=== PATIENT | female | born 1995 | race Caucasian/White ===

== ENCOUNTER 2019-02-07 15:54 | Emergency (ER) | payer OTHER ==
[2019-02-07] MEDS ORDERED: LIDOCAINE 1% INJ-PF (10 MG/ML) 30 ML SDV INJ ONE (16:53)
[2019-02-07] MEDS ORDERED: AZITHROMYCIN 250 MG TABLET PO ONE (16:53)
[2019-02-07] MEDS ORDERED: CEFTRIAXONE INJ 250 MG VIAL IM ONE (16:53)
--- NOTE | 2019-02-07 16:57 | ER Document Report ---
HPI - HPI Time Seen by Provider: 02/07/19 16:48 Notes: Patient is a 23-year-old female no significant past medical history who was diagnosed with chlamydia couple weeks ago and had a couple treatments for it. Patient states that she did have intercourse with her around that time as well and presents with him for both of them to get treated. Patient states that she is just here to make sure that it is not in her system anymore and would like another treatment. She is otherwise able to eat and drink without difficulty. She is urinating normally. No other vaginal discharge, odor, or bleeding. She has no concerns or complaints otherwise. Denies any headache, fever, URI, sore throat, chest pain, palpitations, syncope, cough, shortness of breath, wheeze, dyspnea, abdominal pain, nausea/vomiting/diarrhea, urinary retention, dysuria, hematuria, loss of control of bowel or bladder, numbness/tingling, saddle anesthesia, muscle paralysis/weakness, or rash. - ROS Systems Reviewed and Negative: Yes All other systems reviewed and negative Past Medical History - Social History Smoking Status: Unknown if Ever Smoked Family History: Reviewed & Not Pertinent Vertical Provider Document - CONSTITUTIONAL Agree With Documented VS: Yes Notes: PHYSICAL EXAMINATION: GENERAL: Well-appearing, well-nourished and in no acute distress. NECK: Normal range of motion, supple without lymphadenopathy LUNGS: Breath sounds clear to auscultation bilaterally and equal. No wheezes rales or rhonchi. HEART: Regular rate and rhythm without murmurs, rubs, gallops. ABDOMEN: Soft, nontender, nondistended abdomen. No guarding, no rebound. Normal bowel sounds present. No CVA tenderness bilaterally. Musculoskeletal: FROM to passive/active. Strength 5+/5. Extremities: No cyanosis, clubbing, or edema b/l. Peripheral pulses 2+. Capillary refill less than 3 seconds. NEUROLOGICAL: Normal speech, normal gait. PSYCH: Normal mood, normal affect. SKIN: Warm, Dry, normal turgor, no rashes or lesions noted. Course - Re-evaluation Re-evalutation: 02/07/19 16:55 Patient is an afebrile, well-hydrated, 21-year-old female who presents for STD testing. Vitals are acceptable. PE is otherwise unremarkable. Patient is otherwise asymptomatic. Zithromax and Rocephin given. Chlamydia/gonorrhea tests are pending. No further work-up warranted. Abdomen is otherwise soft nontender. Patient to recheck with your PCM next week. Consider consult with our department. Return to the ED with any other worsening/concerning symptoms. Patient is in today. Low suspicion for any other systemic or emergent condition at this time. Discharge - Discharge Clinical Impression: STD exposure Condition: Stable Disposition: HOME, SELF-CARE Additional Instructions: Maintain fluid intake Proper hygienic technique Keep the skin clean Tylenol/ibuprofen as needed Check in with the health department this week for further testing if warranted Your chlamydia/gonorrhea tests are pending and you will be notified if positive results; you may call in 1 day for the results as well F/u with your PCM/OBGYN in 3-5 days for a recheck Return to the ED with any development of FAULKNER/fever, trouble with vision, eye redness, worsening pain, urethral discharge, urinary retention, blood in the urine, flank pain, abdominal pain, n/v, Chest Pain, shortness of breath, joint pains, trouble breathing, or any other worsening/concerning symptoms as needed otherwise. [facility] - Follow up as needed
[2019-02-07 17:05] VITALS: BP 137/95
== END 2019-02-07 17:33 | disposition home or self-care (01) ==
LOC: ER 15:54
DX: Z20.2 Contact with and (suspected) exposure to infections with a predominantly sexual mode of transmission (principal)
CPT/HCPCS: 99283; 96372; J3490; J0696

== ENCOUNTER 2019-06-22 20:29 | Emergency (ER) | payer OTHER ==
--- NOTE | 2019-06-22 20:40 | ER Document Report ---
ED Medical Screen (RME) - General Chief Complaint: Nausea Stated Complaint: NAUSEA-12 WEEKS PREG Time Seen by Provider: 06/22/19 20:37 Mode of Arrival: Ambulatory Information source: Patient Notes: 23-year-old female presents to the emergency department with reports that she is supposed to be approximately 12-1/2 weeks . She reports she went to [facility] yesterday for her OB appointment. An ultrasound was completed. Patient was told that the fetus stopped growing at 7 weeks and that she is miscarriaging. Patient reports that she was evaluated when she was 81/2 and everything was fine. Patient reports her stomach is still growing. Patient reports she has no symptoms of miscarriage. She reports she miscarriage her first . Denies abdominal pain. She reports she is not bleeding. She was given a medication to take tonight and before she takes it she wants to confirm that she really is not . I have greeted and performed a rapid initial assessment of this patient. A comprehensive ED assessment and evaluation of the patient, analysis of test results and completion of the medical decision making process will be conducted by additional ED providers. TRAVEL OUTSIDE OF THE [place] IN LAST 30 DAYS: No - Related Data Allergies/Adverse Reactions: metformin Allergy (Verified 02/07/19 17:00) Physical Exam - Vital signs Vitals: Temp Pulse Resp BP Pulse Ox 98.8 F 84 16 140/75 H 100 06/22/19 20:35 06/22/19 20:35 06/22/19 20:35 06/22/19 20:35 06/22/19 20:35 Course - Vital Signs Vital signs: Temp Pulse Resp BP Pulse Ox 98.8 F 84 16 140/75 H 100 06/22/19 20:35 06/22/19 20:35 06/22/19 20:35 06/22/19 20:35 06/22/19 20:35
--- NOTE | 2019-06-22 22:32 | RADIOLOGY REPORT (SQ) ---
EXAM: First trimester OB ultrasound. CLINICAL INDICATION: Possible miscarriage. COMPARISON: None. TECHNIQUE: First trimester OB ultrasound was performed. FINDINGS: Uterus: The uterus measures 7.2 x 4.8 x 6.8 cm. In the uterine fundus is an ovoid gestational sac which measures 5.0 x 1.6 x 3.5 cm. This correlates with a gestational age of eight weeks four days. Clinically the patient should be at 12 weeks two days. No definitive pole, yolk sac or cardiac activity. Findings are consistent with a blighted ovum. Ovaries and adnexa: Right ovary measures 2.7 x 1.3 x 2.0 cm and is morphologically normal. There is normal color flow. Left ovary measures 2.9 x 2.8 x 1.8 cm and also has normal color flow. No adnexal mass. No free fluid. IMPRESSION: Gestational sac that dates at eight weeks four days. No pole or cardiac activity. Findings are consistent with a blighted ovum.
--- NOTE | 2019-06-22 22:47 | ER Document Report ---
ED GI/ - General Chief Complaint: Nausea/Vomiting Stated Complaint: NAUSEA-12 WEEKS PREG Time Seen by Provider: 06/22/19 20:37 Primary Care Provider: [facility] [Provider Group] - Follow up as needed Mode of Arrival: Ambulatory Information source: Patient Notes: 23-year-old female presented to ED for complaint of concerned that the PARTNER MANAGER that she saw today was wrong. She states she is supposed to be about 12 and half weeks and she went to [facility] yesterday for her OB appointment and they told her that the fetus had stopped growing at 7 weeks and that she was miscarrying. She states that she was told at 8-1/2 weeks that everything was fine and that her stomach was still become more enlarged. She states she miscarried her first and she has not had any abdominal pain or bleeding and she does not understand how she miscarried with no pain or bleeding. She states she was given medicine by the PARTNER MANAGER and told to take that to help her expel all products of conception. She states she did not want to take this medication until she confirmed that she really was not anymore. TRAVEL OUTSIDE OF THE [place] IN LAST 30 DAYS: No - HPI Patient complains to provider of: Onset: Yesterday Quality of pain: No pain Severity in ED: None Pain Level: Denies Menstrual period history: - States she is supposed to be 12-1/2 weeks and she was told by [facility] PARTNER MANAGER that she was no longer and she wanted this confirmed before she took the medication to expel the products of conception. Associated symptoms: Other - Patient concerned Exacerbated by: Denies Relieved by: Denies Similar symptoms previously: Yes Recently seen / treated by doctor: Yes - Related Data Allergies/Adverse Reactions: metformin Allergy (Verified 02/07/19 17:00) Home Medications: prenatals Past Medical History - General Information source: Patient - Social History Smoking Status: Current Every Day Smoker Frequency of alcohol use: None Drug Abuse: None Lives with: Family Family History: Reviewed & Not Pertinent Patient has homicidal ideation: No - Past Medical History Cardiac Medical History: Reports: None Pulmonary Medical History: Reports: None EENT Medical History: Reports: None Neurological Medical History: Reports: None Endocrine Medical History: Reports: None Renal/ Medical History: Reports: None Malignancy Medical History: Reports: None GI Medical History: Reports: None Musculoskeletal Medical History: Reports None Skin Medical History: Reports None Psychiatric Medical History: Reports: None Traumatic Medical History: Reports: None Infectious Medical History: Reports: None Surgical Hx: Negative Past Surgical History: Reports: None Review of Systems - Review of Systems Constitutional: No symptoms reported EENT: No symptoms reported Cardiovascular: No symptoms reported Respiratory: No symptoms reported Gastrointestinal: No symptoms reported Genitourinary: No symptoms reported Female Genitourinary: Other - Patient wants second opinion that she is really lost her fetus before she takes the medication given to her by her PARTNER MANAGER Musculoskeletal: No symptoms reported Skin: No symptoms reported Hematologic/Lymphatic: No symptoms reported Neurological/Psychological: No symptoms reported Physical Exam - Vital signs Vitals: Temp Pulse Resp BP Pulse Ox 98.8 F 84 16 140/75 H 100 06/22/19 20:35 06/22/19 20:35 06/22/19 20:35 06/22/19 20:35 06/22/19 20:35 Interpretation: Normal - General General appearance: Appears well, Alert - HEENT Head: Normocephalic, Atraumatic Eyes: Normal Pupils: PERRL - Respiratory Respiratory status: No respiratory distress Chest status: Nontender Breath sounds: Normal Chest palpation: Normal - Cardiovascular Rhythm: Regular Heart sounds: Normal auscultation Murmur: No - Abdominal Inspection: Normal Distension: No distension Bowel sounds: Normal Tenderness: Nontender Organomegaly: No organomegaly - Back Back: Normal, Nontender - Extremities General upper extremity: Normal inspection, Nontender, Normal color, Normal ROM, Normal temperature General lower extremity: Normal inspection, Nontender, Normal color, Normal ROM, Normal temperature, Normal weight bearing. No: Dena's sign - Neurological Neuro grossly intact: Yes Cognition: Normal Orientation: AAOx4 [place] Coma Scale Eye Opening: Spontaneous Ave Coma Scale Verbal: Oriented Ave Coma Scale Motor: Obeys Comm[address] Ave Coma Scale Total: 15 Speech: Normal Motor strength normal: LUE, RUE, LLE, RLE Sensory: Normal - Psychological Associated symptoms: Tearful - Skin Skin Temperature: Warm Skin Moisture: Dry Skin Color: Normal Course - Re-evaluation Re-evalutation: 06/22/19 23:44 Discussed labs and ultrasound with patient written report of labs and ultrasound given to patient. Patient became very tearful stated she wanted to speak with her for a few minutes privately. She was given time alone to converse with her . She was then discharged home with instructions to follow-up with her PARTNER MANAGER. - Vital Signs Vital signs: Temp Pulse Resp BP Pulse Ox 98.8 F 88 18 133/98 H 97 06/22/19 22:58 06/22/19 22:58 06/22/19 22:58 06/22/19 22:58 06/22/19 22:58 - Laboratory Laboratory results interpreted by me: 06/22/19 21:05 Beta HCG, Quant 1764.20 H - Diagnostic Test Radiology reviewed: Image reviewed, Reports reviewed Discharge - Discharge Clinical Impression: Incomplete miscarriage Condition: Stable Disposition: HOME, SELF-CARE Additional Instructions: Miscarriage Impending You have been evaluated for a possible miscarriage. At this time, it appears that the fetus has stopped growing. A miscarriage occurs when the fetus is abnormal. There is no medicine or treatment to prevent it. If bleeding is not severe, and if your pain can be controlled with medicine, you could complete the miscarriage at home. If that's not practical, or if the miscarriage doesn't progress spontaneously, we will arrange for a D&C procedure. You should rest in bed. Do not douche or have sex for at least a week, or until OK'd by the doctor. If you believe you've passed the fetus, collect it in a zip-lock plastic bag. Be sure to follow up with your doctor. Call the doctor or return for re- examination if there is an increase in bleeding or cramping, extreme weakness, fainting, fever, or passage of tissue. Ibuprofen Ibuprofen is an excellent, safe drug for pain control. In addition, it has potent antiinflammatory effects which are beneficial, especially in the treatment of injuries, arthritis, or tendonitis. It's best to take ibuprofen with food. Persons with ulcer disease or allergy to aspirin should notify their physician of this before taking ibuprofen. Take the medication exactly as prescribed. Don't take additional doses unless instructed to do so by your doctor. If you develop wheezing, shortness of breath, hives, faintness, stomach pain, vomiting, or dark black stools, return for re-evaluation at once. Acetaminophen Acetaminophen may be taken for pain relief or fever control. It's much safer than aspirin, offering a wider range of "safe" dosages. It is safe during . Some brand names are Tylenol, Panadol, Datril, Anacin 3, Tempra, and Liquiprin. Acetaminophen can be repeated every four hours. The following are maximum recommended dosages: WEIGHT Dose Drops Elixir Chewable(80mg) (LBS.) drprs=droppers tsp=teaspoon 6 40 mg .4 ml (1/2) 6-11 80 mg .8 ml (full) 1/2 tsp 1 tab 12-16 120 mg 1 1/2 drprs 3/4 tsp 1 1/2 tabs 17-23 160 mg 2 drprs 1 tsp 2 tabs 24-30 240 mg 3 drprs 1 1/2 tsp 3 tabs 30-35 320 mg 2 tsp 4 tabs 36-41 360 mg 2 1/4 tsp 4 1/2 tabs 42-47 400 mg 2 1/2 tsp 5 tabs 48-53 480 mg 3 tsp 6 tabs 54-59 520 mg 3 1/4 tsp 6 1/2 tabs 60-64 560 mg 3 1/2 tsp 7 tabs 65-70 600 mg 3 3/4 tsp 7 1/2 tabs 71-76 640 mg 4 tsp 8 tabs 77-82 720 mg 4 1/2 tsp 9 tabs 83-88 800 mg 5 tsp 10 tabs >89 pounds or adults 650 mg to 900 mg Acetaminophen can be repeated every four hours. Maximum daily dose not to exceed 4000 mg. These maximum recommended dosages are slightly higher than the dosages written on the product container, but these dosages are very safe and well below the toxic dosage for acetaminophen. FOLLOW-UP CARE: If you have been referred to a physician for follow-up care, call the physicians office for an appointment as you were instructed or within the next two days. If you experience worsening or a significant change in your symptoms, notify the physician immediately or return to the Emergency Department at any time for re-evaluation. Forms: Elevated Blood Pressure Referrals: [facility] [Provider Group] - Follow up as needed
[2019-06-22 23:02] VITALS: BP 133/98
== END 2019-06-22 23:02 | disposition home or self-care (01) ==
LOC: ER 20:29
DX: O03.4 Incomplete spontaneous abortion without complication (principal); O21.9 Vomiting of pregnancy, unspecified; O99.331 Smoking (tobacco) complicating pregnancy, first trimester; Z3A.01 Less than 8 weeks gestation of pregnancy
CPT/HCPCS: 36415; 76817; 84702; 99284